=== PATIENT | male | born 1965 | race Caucasian/White ===

== ENCOUNTER 2016-07-24 15:10 | Observation (INO) ==
--- NOTE | 2016-07-24 17:56 | Internal Med History&Physical ---
Date of Encounter: 07/24/16 Time of Encounter: 17:53 Assessment and Plan (1) Atypical chest pain Current visit: No Status: Acute mild elevation of trop. currently chest pain free. has family h/o signifcant for his mother with heart attack at early 40s, is a smoker and has HLD. will trend trop, EKG does not show any significant ischemic changes. will repeat EKG in case of recurrent chest pain. will order exercise stress test for tomm. continuous tele monitoring and nitroglycerin prn for chest pain. he had a nuclear stress test on 2012 with normal LVEF and negative for ischemia. (2) Anxiety and depression Current visit: Yes Status: Acute currently stable, will continue home meds (3) HLD (hyperlipidemia) Current visit: Yes Status: Acute continue home meds Qualifiers: Hyperlipidemia type: unspecified Qualified Code(s): E78.5 - Hyperlipidemia , unspecified (4) Tobacco abuse Current visit: Yes Status: Acute Internal Medicine - H&P: HPI Chief complaint: chest pain Admitted From: Hospital to Hospital Transfer Plans for Post Hospital Care: Home History of present illness: Mr. Price is a 51 year old male with PMH of HLD and smoking was transferred from [facility]. he presented with chest pressure like heaviness that started this morning at 11am. Typically comes on at rest . 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 No shortness of breath no diaphoresis no nausea or vomiting. Some radiation through to the back. Regarding his left arm numbness and tingling he has some chronic issues with neck pain that causes that. There was no better or worse today in association with chest pain episodes. He is a smoker whose mother had a heart attack in her 40s. After the onset of each episode of chest pain he had the urge to belch. He has drank only an orange crush today so far. He says he had a clean LHC about 5 years ago . HE was given a dose of 325 of aspirin at [facility]. He is not currently having any chest pain now. Past Med Surg Social Fam HX - Past Medical History Medical history: COPD, GERD, hyperlipidemia, hypertension Psychiatric history: anxiety, depression, panic disorder - Past Surgical History Surgical History: appendectomy, cholecystectomy - Social History Smoking Status: Current every day smoker Smokeless Tobacco Status: No Alcohol use: occasionally Drug use: none - Family History Mother Hx Family Cardiac Disorders: Yes Hx Family Neurologic Disorders: Yes Father Hx Family Psychosocial Disorders: Yes Internal Medicine - H&P: Meds Aspirin [Adult Low Dose Aspirin EC] 81 mg PO DAILY 04/02/15 [History] FLUoxetine HCl [Prozac] 20 mg PO DAILY 04/02/15 [History] Hydroxyzine HCl 25 mg PO DAILY 04/02/15 [History] Lamotrigine [Lamictal] 50 mg PO HS 04/02/15 [History] Loratadine [Claritin] 10 mg PO DAILY 04/02/15 [History] Omeprazole [PriLOSEC] 40 mg PO DAILY 04/02/15 [History] Potassium Chloride [Klor-Con Sprinkle] 10 meq PO DAILY 04/02/15 [History] Simvastatin [Zocor] 40 mg PO HS 04/02/15 [History] Tiotropium [Spiriva] 18 mcg IH 0700 04/02/15 [History] Nitroglycerin [Nitrostat] 0.4 mg SL PRN PRN 09/29/15 [History] Allergies codeine Allergy (Verified 07/24/16 13:25) Gastrointestinal Upset naproxen Allergy (Verified 07/24/16 13:25) Gastrointestinal Upset tramadol Allergy (Verified 07/24/16 13:25) Seizure All Systems PM: A 10-system review of systems was performed and is negative for pertinent findings except as documented above in the HPI. - Constitutional Constitutional: no chills, no fever(s), no night sweats - EENT Eyes: no change in vision, no discharge, no pain, no photophobia Ears: no ear discharge, no ear pain, no tinnitus Nose, mouth and throat: no dysphagia, no nasal discharge, no neck pain, no sore throat - Cardiovascular Cardiovascular ROS IM: chest pain - Respiratory Respiratory: no cough, no dyspnea, no wheezing, no excessive phlegm production - Gastrointestinal Gastrointestinal: no abdominal pain, no diarrhea, no hematemesis, no hematochezia, no melena, no nausea, no vomiting - Genitourinary Genitourinary ROS male: as per HPI - Musculoskeletal Musculoskeletal ROS IM: no numbness, no tingling - Integumentary Integumentary IM: no rash, no unusual bruising - Neurological Neurological ROS: no confusion, no convulsions, no focal weakness, no numbness, no tingling, no tremor(s) - Constitutional Vitals: Temp Pulse Resp BP Pulse Ox 98.6 F 67 18 144/105 97 07/24/16 17:11 07/24/16 17:11 07/24/16 17:11 07/24/16 17:11 07/24/16 17:11 General appearance: Present: A&O X 3, no acute distress Exam: neck- supple chest- b/l clear, no added sounds, no chest wall tenderness CVS-s1 and s2, no mr//g abd-soft, non tender, bs are present ext- no edema neuro- no focal defecit
[2016-07-24] MEDS ORDERED: Naloxone 0.4 MG/ML INJ IVP PRN (18:02)
[2016-07-24] MEDS ORDERED: Nitroglycerin 0.4 MG TAB.SUBL SL PRN (18:03)
[2016-07-24] MEDS: Pantoprazole 40 MG VIAL IVP SCH (20:08)
[2016-07-24] MEDS ORDERED: lamoTRIgine 25 MG TABLET PO SCH (21:00)
[2016-07-25 01:36] LABS: Basophils % 0.4 %; Eosinophils # 0.2 K/mcL (0.0-0.6); Eosinophils % 2.5 %; Hematocrit 34.8 % (37.5-50.1); Hemoglobin 10.9 g/dL (12.9-16.9); Immature Granulocytes % 0.4 % (0-4); Lymphocytes # 2.7 K/mcL (0.6-4.6); Lymphocytes % 31.9 %; Mean Corpuscular HGB Conc 31.3 g/dL (31.6-35.5); Mean Corpuscular Hemoglobin 25.6 pg (28.0-33.3); Mean Corpuscular Volume 81.9 fL (83.0-100.0); Mean Platelet Volume 10.6 fL (9.4-12.4); Monocytes # 0.5 K/mcL (0.0-1.3); Monocytes % 6.2 %; Platelet Count 257 K/mcL (140-400); Red Blood Count 4.25 M/mcL (4.19-5.50); Red Cell Distribution Width 13.8 % (11.5-14.5); Segmented Neutrophils % 58.6 %
[2016-07-25 01:56] LABS: BUN/Creatinine Ratio 9 (6-26); Blood Urea Nitrogen 9 mg/dL (8-26); Calcium 8.5 mg/dL (8.6-10.8); Carbon Dioxide 24 mEq/L (19-29); Chloride 107 mEq/L (98-109); Glucose 135 mg/dL (70-99); Osmolality,Calculated 291 (280-300); Potassium 3.3 mEq/L (3.5-4.5); Sodium 140 mEq/L (136-145); eGFR For African Americans > 60 (> 60); eGFR For Non-African Americans > 60 (> 60)
[2016-07-25] MEDS ORDERED: *HR* Heparin 5,000 UNIT/ML VIAL SQ SCH (06:00)
[2016-07-25] MEDS ORDERED: Tiotropium 18 MCG inhalation IH SCH (07:00)
[2016-07-25] MEDS ORDERED: Aspirin Enteric Coated 81 MG Tablet PO SCH (09:00)
[2016-07-25] MEDS ORDERED: hydrOXYzine pamoate 25 MG CAPSULE PO SCH (09:00)
[2016-07-25] MEDS ORDERED: FLUoxetine 20 MG CAPSULE PO SCH (09:00)
[2016-07-25] MEDS: Pantoprazole 40 MG VIAL IVP SCH (10:11)
[2016-07-25 11:26] VITALS: BP 167/96
--- NOTE | 2016-07-25 12:39 | Nuclear Medicine Stress Report ---
Exercise Nuclear Stress Name: Pilo Price Date of Study: 07/25/2016 Date: 1965 Ht: 70.0 in Medical Record#: [id number] Age: 51 Wt: 200.0 lb Gender: Male Order #: [id number] Location: [facility] Room: [facility] Supervising Provider: Shante Abreu CNP Reading Physician: Pamela Luis DO Ordering Physician: Marga Self CNP Primary Care Physician: [facility] Stress Technologist: Sushant Cassidy, SPONGE P[employer]ER, [address] Monkey: Aamir Devine Indications: Chest Pain Impression: Technically challenging study to interpret (see Findings below). No definite perfusion evidence of ischemia or infarct. Exercise ECG is not diagnostic due to baseline abnormalities. However, there are ECG changes at peak stress (see Findings below). This was not associated with chest pain. Fair exercise capacity. Gated EF = 62%. Recommend clinical correlation. History: Hypercholesteremia History of Smoking Stress Test Summary: Stress Test Type: Treadmill Protocol: Rodrigo Baseline Information: Initial Heart Rate: 78 Blood Pressure: 130/90 Stress Information: Stress Time: 6 min 34 sec Test Terminated Due to (primary): Dyspnea Maximum Blood Pressure: 180/96 Maximum Heart Rate: 149 Percent Maximum Heart Rate Achieved: 89 Double Product: 26,820 METS Reached: 7 Nuclear Summary: SPECT myocardial perfusion imaging using Tc99m Sestamibi given intravenously was performed at rest and following cardiac stress testing. The resting images were obtained following initial dose of 10.6 mCi. Following stress an additional dose of 32.5 mCi was given at peak exercise or 30 seconds post regadenoson infusion. Medication Given: Time Medication Dose Units Route Findings: Stress Note * Resting ECG demonstrated normal sinus rhythm with nonspecific ST abnormalities. * Exercise ECG is non diagnostic for ischemia due to non-specific ST and T wave changes. At peak exercise, there are approximately [address] depressions and TWI in II, aVF and [address] elevation in aVR only. There are also nonspecific ST abnormalities in V3-V6. * Patient had no chest pain during stress. * The exercise capacity was fair. * No arrhythmias were noted during stress. Hemodynamic responses * Normal hemodynamic responses to exercise. Study Quality * Study quality was challenging. Gated EF % * Gated EF = 62%. Left Ventricle * The left ventricle is not dilated. NORMALS * Normal wall motion. TID * No evidence of transient ischemic dilatation. Lung Uptake * There is no evidence of increase lung uptake. PERFUSION * There is increased bowel wall uptake obscuring the inferior wall. * Small sized, mild intensity fixed perfusion defect involving the basal and mid inferoseptum. Normal wall motion. Findings represent artifact. * There is a small sized perfusion defect involving the apex during rest that improves with stress. Findings represent artifact. * Other segments demonstrate normal rest and stress perfusion. Updated by Pamela Luis on 07/25/2016 12:28:16 PM electronically signed on 07/25/2016 12:32:35 PM with status of Final
--- NOTE | 2016-07-25 15:40 | Discharge Summary ---
Date of Encounter: 07/25/16 Time of Encounter: 10:00 - Discharge Diagnosis (1) Atypical chest pain Priority: Primary Status: Acute (2) Anxiety and depression Priority: Secondary Status: Acute (3) HLD (hyperlipidemia) Priority: Secondary Status: Acute Qualifiers: Hyperlipidemia type: unspecified Qualified Code(s): E78.5 - Hyperlipidemia , unspecified (4) Tobacco abuse Priority: Secondary Status: Acute - Discharge Medications Home Medications: Aspirin [Adult Low Dose Aspirin EC] 81 mg PO DAILY 04/02/15 [History] FLUoxetine HCl [Prozac] 40 mg PO DAILY 04/02/15 [History] Loratadine [Claritin] 10 mg PO DAILY 04/02/15 [History] Omeprazole [PriLOSEC] 40 mg PO DAILY 04/02/15 [History] Potassium Chloride [Klor-Con Sprinkle] 20 meq PO DAILY 04/02/15 [History] Tiotropium [Spiriva] 18 mcg IH DAILY 04/02/15 [History] Cyanocobalamin (Vitamin B-12) [Vitamin B12] 1,000 mcg PO DAILY 07/24/16 [History ] Cyclobenzaprine HCl 5 mg PO TID PRN 07/24/16 [History] HydrOXYzine Pamoate [Vistaril] 50 mg PO TID PRN 07/24/16 [History] Lamotrigine [Lamictal] 100 mg PO DAILY 07/24/16 [History] Multivitamin-Min/Iron/FA/Vit K [Multi-Day Plus Minerals Tablet] 1 each PO DAILY 07/24/16 [History] Sildenafil Citrate [Viagra] 50 mg PO AD PRN 07/24/16 [History] Simvastatin [Zocor] 20 mg PO HS 07/24/16 [History] Simvastatin [Zocor] 40 mg PO HS tablet 07/25/16 [Rx] Allergies/Adverse Reactions: Allergies codeine Allergy (Verified 07/24/16 13:25) Gastrointestinal Upset naproxen Allergy (Verified 07/24/16 13:25) Gastrointestinal Upset tramadol Allergy (Verified 07/24/16 13:25) Seizure Procedures/tests Complete & Pending: Procedures Performed prior 72 hours Category Date Time Status NM [place]ota perf SPECT multi [NM] Routine Exams 07/24/16 18:05 Taken SP exercise nuclear stress Routine Y 07/25/16 Completed Date of admission: 07/24/16 16:37 Primary care physician: [facility] Discharging clinician: Paolo Quesada Anticipated date of discharge: 07/25/16 - Patient Status Disposition: Home, Self-Care Condition: Good Functional capacity at discharge: independent ambulation Overall status at discharge: patient is back to baseline - Discharge Instructions Follow Up With: [facility],PCP [Primary Care Provider] - - Diet and Activity Activity: increase activity as tolerated Diet: low fat, low cholesterol, low salt diet Interval History: Mr. Price is a 51 year old male with PMH of HLD and smoking was transferred from [facility]. he presented with chest pressure like heaviness that started this morning at 11am. Typically comes on at rest . 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 No shortness of breath no diaphoresis no nausea or vomiting. Some radiation through to the back. Regarding his left arm numbness and tingling he has some chronic issues with neck pain that causes that. There was no better or worse today in association with chest pain episodes. He is a smoker whose mother had a heart attack in her 40s. After the onset of each episode of chest pain he had the urge to belch. He has drank only an orange crush today so far. He says he had a clean LHC about 5 years ago . HE was given a dose of 325 of aspirin at [facility]. He is not currently having any chest pain now. Hospital course: Mr. Price is a 51 year old male admitted for chest pain and elevated troponin. he was placed on closely cardiac monitoring. 3 sets of troponins was tracked, which is 0.04, 0.03,0.03. patient has stress test done, which reveals no definite perfusion evidence of ischemia or infarct. patient is pain free after admission. Will discharge patient home, continue home medications include aspirin and statin, follow-up with PCP. Patient was seen and examined. he has no chest pain, no SOB. vital signs stable. Stable to discharge home. patient was educated to stop smoking Time spent discussing smoking cessation with patient: more than 10 minutes - Time Spent with Patient Total time spent providing and/or coordinating discharge services: Greater than 30 minutes - Constitutional Vitals: Temp Pulse Resp BP Pulse Ox 97.9 F 93 16 167/96 96 07/25/16 11:25 07/25/16 11:25 07/25/16 11:25 07/25/16 11:25 07/25/16 11:25 General appearance: Present: A&O X 3, no acute distress - Head Head exam: Present: atraumatic, normocephalic - Eye Eye exam: Present: PERRL, conjuntiva pink, sclera anicteric Pupils: Present: PERRL - Neck Neck exam general surgery: Present: supple, trachea midline. Absent: lymphadenopathy - Respiratory Respiratory exam: Present: CTAB. Absent: accessory muscle use, rales, rhonchi, wheezes - Cardiovascular Cardiovascular exam: Present: RRR, +S1, +S2. Absent: diastolic murmur, gallop, rubs, systolic murmur - GI/Abdominal GI/Abdominal exam: Present: normal bowel sounds, soft, no peritoneal signs. Absent: distended, tenderness - Extremities Exam Extremities exam: Present: warm, radial pulses palpable and symetrical. Absent : calf tenderness, cyanotic, pedal edema - Neurological Exam Neurological exam: Present: CN II-XII intact, oriented X3, no focal deficits. Absent: pronater drift, facial droop, speech deficit - Skin Skin exam: Present: dry, intact
== END 2016-07-25 16:41 | disposition home or self-care (01) ==
LOC: 3BNU → SUATTDRO 16:37
PROVIDERS: ADMIT Internal Medicine Endocrinology, Diabetes & Metabolism; ATTEND Internal Medicine